=== PATIENT | female | born 2005 | race Two or more races ===

== ENCOUNTER 2025-03-01 10:57 | Emergency (ER) | payer BC, SELFPAY ==
[2025-03-01 11:01] VITALS: BP 134/85
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
== END 2025-03-01 12:30 | disposition home or self-care (01) ==
LOC: EMR 10:57
PROVIDERS: EMERGENCY PHYSICIAN Emergency Medicine
DX: F39 Unspecified mood [affective] disorder (principal)
CPT/HCPCS: 99283